=== PATIENT | male | born 1960 | race Caucasian/White ===

== ENCOUNTER 2018-08-07 21:09 | Observation (INO) ==
--- NOTE | 2018-08-07 22:09 | ED ---
HPI General Chief Complaint: Extremity Injury, Upper Stated Complaint: Right shoulder dislocation Time Seen by Provider: 08/07/18 21:37 Source: patient Mode of arrival: ambulatory Limitations: no limitations History of Present Illness HPI narrative: 57-year-old male presents to the emergency room for evaluation of right shoulder pain after mechanical fall just prior to arrival. Patient tripped on a parking curb and fell forward landing mostly on his belly. He also had his bilateral arms outstretched and reports significant pain in the proximal shoulder. Pain is worsened with range of motion. No radiation. States he cannot lift his arm more than a few inches from his body. He states it does not feel broken and he believes it might be dislocated. No history of dislocation. He has not taken anything for symptoms. Reports occasional paresthesias of the right upper extremity. He adamantly denies any other injuries or abdominal pain. MD complaint: injury to: Reports right and shoulder Onset (ago): hour(s) Other injuries: Reports none Handedness: right Place: outdoors Severity: severe Relieving factors: immobilization Exacerbating factors: movement of extremity Context: Reports fall Associated symptoms: Reports denies other symptoms Related Data Home Medications Medication Instructions Recorded Confirmed amlodipine 10 mg PO DAILY 08/07/18 08/07/18 Allergies Allergy/AdvReac Type Severity Reaction Status Date / Time No Known Allergies Allergy Verified 08/07/18 21:37 Review of Systems ROS: all other systems reviewed are negative PMFSH Social History Social History Substance History: No History of Abuse Smoking Status: Never smoker How Often Do You Have a Drink Containing Alcohol: 2 to 4 times a month Recent Travel in [facility] within the Last 8 Weeks: No Recent Out of Country Travel within the Last 8 Weeks: No Immunization History Tetanus Immunization: <5 Years Exam Narrative Exam Narrative: GENERAL: Well-nourished, morbidly obese male in no acute distress. Afebrile. Ambulatory. SKIN: Focused skin assessment warm/dry. No erythema or ecchymosis per HEAD: Normocephalic. EYES: No scleral icterus. No injection or drainage. NECK: Supple, trachea midline. No JVD or lymphadenopathy. CARDIOVASCULAR: Regular rate and rhythm without murmurs, gallops, or rubs. RESPIRATORY: Breath sounds equal bilaterally. No accessory muscle use. GASTROINTESTINAL: Abdomen soft, non-tender, nondistended. No rebound tenderness or guarding. MUSCULOSKELETAL: No cyanosis. No obvious deformity. No edema. 2+ radial pulse. Radial, ulnar, median nerves intact on the right. Tenderness to palpation of the right anterior humeral head. Limited range of motion of the right shoulder secondary to pain. Pain is reduced with passive range of motion. Muscle is spasming. Procedures Orthopedic Joint Reduction R shoulder Dislocation: Time Out Performed: Yes Side: right Joint Reduction Location: shoulder Analgesia: procedural sedation Shoulder Technique Used (if applicable): traction/counter-traction and external rotation Technique Used: traction/counter-traction Post-Reduction Neuro Exam: intact Post-Reduction Vascular Exam: intact Post Reduction X-Ray Obtained: Yes Post Reduction X-Ray Results: not reduced Splint Applied: Yes Patient Tolerated Procedure: well Procedural Sedation Indications: fracture/dislocation reduction ASA Class: ASA 2 Moderate Systemic Disease Time of Last PO Intake: 21:00 Preparation: press clippings cutter and paster applied, pulse oximeter, supplemental O2 applied and suction/airway equipment at bedside IV Etomidate Dose (mgs): 20 Patient Tolerated Procedure: well Complications: none Interventions: oxygen applied and airway repositioned Course Reevaluation(s) Reevaluation #1: Case has been discussed with Dr. Ball from orthopedics who recommended to admit the patient to medicine for an intraoperative under anesthesia reduction of the right shoulder Time: 03:10 Initial Documented Vital Signs Temperature 97.7 F 08/07/18 21:15 Pulse Rate 89 08/07/18 21:15 Respiratory Rate 20 08/07/18 21:15 Blood Pressure 155/73 H 08/07/18 21:15 Pulse Oximetry 95 08/07/18 21:15 Last Documented Vital Signs Temperature 97.7 F 08/07/18 21:15 Pulse Rate 87 08/08/18 05:12 Respiratory Rate 18 08/08/18 05:12 Blood Pressure 167/87 H 08/08/18 05:12 Pulse Oximetry 97 08/08/18 05:12 Medical Decision Making [facility] Narrative Medical decision making narrative: 57-year-old male presents to the emergency room for evaluation of right shoulder pain after trip and fall just prior to arrival. Patient fell mostly on his abdomen and right outstretched arm. He reports severe pain in the right proximal anterior humeral head. Pain is worse with any range of motion. Physical exam is somewhat limited due to body habitus but there is no obvious deformity. Right upper extremity is neurovascularly intact with 2+ radial pulse. Radial, ulnar, and median nerves intact. He was given hydrocodone for pain. X-ray of the shoulder shows anterior dislocation of the glenohumeral joint with displaced Hill-Sachs and bony Bankart lesions. At this time patient was transferred to the [facility] for reduction and care was signed out to nighttime physician, Dr. Velasco. Medical Screen Exam Complete: Yes Emergency Medical Condition: Yes Differential Diagnosis Differential Diagnosis: Muscle spasm, fracture, dislocation, contusion Lab Data Lab results reviewed: Yes I reviewed the patient's lab results. Result diagrams: 08/08/18 03:25 08/08/18 03:25 Lab Results 08/08/18 08/08/18 Range/Units 03:25 03:25 CBC w Diff Auto diff final WBC 11.8 H (4.0-11.0) th/mm3 RBC 4.05 L (4.50-5.90) mil/mm3 Hgb 13.6 (13.0-17.0) gm/dL Hct 40.2 (39.0-51.0) % MCV 99.2 (80.0-100.0) fL MCH 33.5 (27.0-34.0) pg MCHC 33.8 (32.0-36.0) % RDW 12.3 (11.6-17.2) % Plt Count 250 (150-450) th/mm3 MPV 8.2 (7.0-11.0) fL Neut % (Auto) 86.4 H (16.0-70.0) % Lymph % (Auto) 9.9 (9.0-44.0) % [place] % (Auto) 3.2 (0.0-8.0) % Eos % (Auto) 0.2 (0.0-4.0) % Baso % (Auto) 0.3 (0.0-2.0) % Neut # (Auto) 10.2 H (1.8-7.7) th/mm3 Lymph # (Auto) 1.2 (1.0-4.8) th/mm3 [place] # (Auto) 0.4 (0.0-0.9) th/mm3 Eos # (Auto) 0.0 (0.0-0.4) th/mm3 Baso # (Auto) 0.0 (0.0-0.2) th/mm3 WBC Differential . Differential Comment . Sodium 137 (136-145) meq/L Potassium 4.4 (3.5-5.1) meq/L Chloride 105 (98-107) meq/L Carbon Dioxide 23.0 (21.0-32.0) meq/L Anion Gap 9 (5-15) meq/L BUN 15 (7-18) mg/dL Creatinine 1.00 (0.60-1.30) mg/dL Estimated GFR 77 L (>89) mL/min Random Glucose 160 H (74-106) mg/dL Calcium 8.2 L (8.5-10.1) mg/dL Total Bilirubin 0.5 (0.2-1.0) mg/dL AST 25 (15-37) U/L ALT 43 (12-78) U/L Alkaline Phosphatase 67 (45-117) U/L Total Protein 7.5 (6.4-8.2) g/dL Albumin 3.7 (3.4-5.0) g/dL Imaging Data Attestation: I personally reviewed and interpreted this imaging study as follows : Radiologist's impression: Shoulder X-Ray 08/07/18 21:38 CONCLUSION: Anterior dislocation of the glenohumeral joint with displaced Hill-Sachs and bony Bankart lesions. Shoulder X-Ray 08/08/18 01:14 CONCLUSION: Persistent anterior dislocation with humeral head fracture. Discharge Plan Discharge Disposition Patient Disposition: Transfer To [facility] Discharge Condition Condition: Stable Discharge Details Discharge Comment: Case has been discussed with the admitting physician Dr. Logan Diagnosis: Dislocation of shoulder region, Fracture of humerus Physicians Team ED Provider: Esdras Velasco ED Midlevel Provider: Lina Blum Primary Care Provider: Christian Lay Attending Provider: Anais Logan Other Providers: Christian Ball Status ED Status: Admitted Observation Patient
--- NOTE | 2018-08-07 22:11 | XR ---
EXAM DATE: 08/07/2018 10:08 PM EST AGE/SEX: 57 years / Male INDICATIONS: Right anterior shoulder pain, post fall today. CLINICAL DATA: This is the patient's initial encounter. Patient reports that signs and symptoms have been present for 1 day and indicates a pain score of 10/10. MEDICAL/SURGICAL HISTORY: None. None. COMPARISON: No prior exams available for comparison. FINDINGS: Glenohumeral joint is dislocated anteriorly. There is a comminuted and inferiorly displaced Hill-Sach s lesion of the humeral head. At least one fracture fragment is likely off of the anterior glenoid. CONCLUSION: Anterior dislocation of the glenohumeral joint with displaced Hill-Sachs and bony Bankart lesions. Electronically signed by: Noah Simons MD 08/07/2018 10:10 PM EST
[2018-08-08] MEDS ORDERED: Etomidate Inj 40 MG/20 ML Vial IV.PUSH ONE (01:11)
[2018-08-08] MEDS ORDERED: Sod Chloride 0.9% Inj 1,000 ML IV.CONT SCH (01:15)
[2018-08-08] MEDS ORDERED: fentaNYL Citrate Inj 100 MCG/2 ML Ampul IV.PUSH ONE (02:56)
--- NOTE | 2018-08-08 03:21 | XR ---
EXAM DATE: 08/08/2018 2:41 AM EST AGE/SEX: 57 years / Male INDICATIONS: Post reduction attempt. CLINICAL DATA: This is the patient's initial encounter. Patient reports that signs and symptoms have been present for 2 days and indicates a pain score of 0/10. MEDICAL/SURGICAL HISTORY: None. None. COMPARISON: HPO, SHOULDER LIMITED RIGHT 2V, 08/07/2018. . FINDINGS: A single view of the right shoulder shows no interval change. Persistent anterior dislocation. There is a fracture through the humeral head. CONCLUSION: Persistent anterior dislocation with humeral head fracture. Electronically signed by: Tee Tolentino MD 08/08/2018 3:19 AM EST
[2018-08-08 03:36] LABS: Baso % (Auto) 0.3 % (0.0-2.0); Eos % (Auto) 0.2 % (0.0-4.0); Hematocrit 40.2 % (39.0-51.0); Hemoglobin 13.6 gm/dL (13.0-17.0); Lymph # (Auto) 1.2 th/mm3 (1.0-4.8); Lymph % (Auto) 9.9 % (9.0-44.0); Mean Corpuscular HGB Conc 33.8 % (32.0-36.0); Mean Corpuscular Hemoglobin 33.5 pg (27.0-34.0); Mean Corpuscular Volume 99.2 fL (80.0-100.0); Mean Platelet Volume 8.2 fL (7.0-11.0); Mono # (Auto) 0.4 th/mm3 (0.0-0.9); Mono % (Auto) 3.2 % (0.0-8.0); Neut # (Auto) 10.2 th/mm3 (1.8-7.7); Neut % (Auto) 86.4 % (16.0-70.0); Platelet Count 250 th/mm3 (150-450); Red Blood Count 4.05 mil/mm3 (4.50-5.90); Red Cell Distribution Width 12.3 % (11.6-17.2); White Blood Count 11.8 th/mm3 (4.0-11.0)
[2018-08-08 03:44] LABS: Chloride 105 meq/L (98-107); Potassium 4.4 meq/L (3.5-5.1); Sodium 137 meq/L (136-145)
[2018-08-08 03:47] LABS: Albumin 3.7 g/dL (3.4-5.0); Anion Gap 9 meq/L (5-15); Calcium 8.2 mg/dL (8.5-10.1); Glucose,Random 160 mg/dL (74-106)
[2018-08-08 03:48] LABS: Blood Urea Nitrogen 15 mg/dL (7-18)
[2018-08-08 03:50] LABS: Alanine Aminotransferase 43 U/L (12-78); Aspartate Aminotransferase 25 U/L (15-37)
[2018-08-08 03:51] LABS: Glomerular Filtration Rate 77 mL/min (>89)
[2018-08-08 03:52] LABS: Total Protein 7.5 g/dL (6.4-8.2)
[2018-08-08 03:53] LABS: Alkaline Phosphatase 67 U/L (45-117)
[2018-08-08] MEDS ORDERED: Acetaminophen 325 MG Tablet PO PRN (04:43)
[2018-08-08] MEDS ORDERED: Naloxone Inj 0.4 MG/ML Vial IV.PUSH PRN (04:43)
[2018-08-08] MEDS ORDERED: Bisacodyl 10 MG Supp RECTAL PRN (04:43)
[2018-08-08] MEDS ORDERED: Morphine Inj 4 MG/ML Vial IV.PUSH PRN (04:43)
[2018-08-08] MEDS ORDERED: Metoprolol Tartrate 25 MG Tablet PO ONE (08:06)
[2018-08-08] MEDS ORDERED: Chlorhexidine Gluconate 2% 1 Pack (2 Cloths) TOPICAL ONE (08:06)
[2018-08-08] MEDS ORDERED: Senna/Docusate Sodium 8.6/50 MG Tablet PO SCH (09:00)
[2018-08-08] MEDS ORDERED: amLODIPine 10 MG Tablet PO SCH (09:00)
[2018-08-08] MEDS ORDERED: Sodium Chlor 0.9% Inj 500 ML IV.SIG SCH (09:00)
[2018-08-08] MEDS ORDERED: Morphine Sulfate Inj 2 MG/ML Vial IV.PUSH SCH (10:10)
[2018-08-08] MEDS ORDERED: Succinylcholine Inj 100 MG/5 ML Syringe IV.PUSH ONE (10:48)
--- NOTE | 2018-08-08 10:58 | P.CONOP ---
[facility] Orthopedics Consult Note - [facility] Consult date: 08/08/18 Chief complaint: Shoulder Dislocation, Humeral Head Fracture Narrative: Jamel is a 57-year-old male. He was walking and tripped over a parking curb. He fell forward landed on his right arm and abdomen. He has significant right shoulder pain. He also has some elbow and wrist pain. He presented to the emergency room where x-rays revealed a right shoulder dislocation with fracture of the greater tuberosity. He underwent closed reduction attempts in the emergency department which were unsuccessful. He has been transferred to [facility] in [facility] for definitive treatment. He is currently awake and alert. His only complaint is his right arm. He denies dizziness, syncope, or loss of consciousness. Pain is severe and intense with any shoulder motion. Pain is improved with rest. Review of Systems Patient denies fevers, chills, weight loss, headache, visual changes, hearing loss, chest pain, palpitations, shortness of breath, nausea, vomiting, no urinary changes, diarrhea, bowel changes, neck pain, back pain, skin rashes, weakness of extremities, easy bleeding, enlarged lymph nodes, numbness of extremities, anxiety, or depression. He complains of right shoulder pain. He also has mild right wrist and elbow pain. Patient's social history, past medical history, and family history were reviewed on chart and with patient. [facility] - History History Provided By: Patient - Medical History Medical History: Medical History (Last Reviewed 08/08/18 @ 10:56 by Usman Tyson MD) Hypertension - Surgical History Surgical History: Surgical History (Last Reviewed 08/08/18 @ 10:56 by Usman Tyson MD) H/O cataract extraction H/O vasectomy History of fusion of lumbar spine History of left hip replacement - Family History Family History: Family History (Last Updated 08/08/18 @ 10:56 by Usman Tyson MD) Other Family history non-contributory - Social History I have reviewed the patient's Social History: Yes - Tobacco History Smoking Status: Never smoker - Alcohol History How Often Do You Have a Drink Containing Alcohol: 2 to 4 times a month - Substance Use History Substance History: No History of Abuse - Travel History Recent Travel in the [facility] Within the Last 8 Weeks: No Recent Travel Out of the Country Within the Last 8 Weeks: No - Immunization History Tetanus Immunization: <5 Years Medications and Allergies Active Medications: Active Medications Acetaminophen (Tylenol) 650 mg PO Q4H PRN PRN Reason: headache/fever/pain1-4 Hydrocodone Bitart/Acetaminophen (Kidder 5/325) 1 tab PO Q4H PRN PRN Reason: pain scale 5 to 10 Al Hydroxide/Mg Hydroxide (Milk Of Magnesia Liq) 30 ml PO Q12H PRN PRN Reason: Mild Constipation Amlodipine Besylate (Norvasc) 10 mg PO DAILY [facility] Last Admin: 08/08/18 09:11 Dose: Not Given Bisacodyl (Dulcolax Supp) 10 mg RECTAL DAILY PRN PRN Reason: SEVERE CONSITIPATION Lactated Ringer's (Lr 1000 Ml Inj) 1,000 mls @ 30 mls/hr IV.SIG .Q24H [facility] Stop: 08/09/18 08:14 Last Admin: 08/08/18 08:35 Dose: 30 mls/hr Sodium Chloride (Ns Inj) 500 mls @ 30 mls/hr IV.SIG .Q10H [facility] Last Admin: 08/08/18 09:12 Dose: Not Given Lactulose (Lactulose Liq) 30 ml PO DAILY PRN PRN Reason: SEVERE CONSITIPATION Morphine Sulfate (Morphine Inj) 2 mg IV.PUSH Q3H PRN PRN Reason: BREAKTHROUGH PAIN Morphine Sulfate (Morphine Inj) 2 mg IV.PUSH ONCE AILYN Naloxone HCl (Narcan Inj) 0.4 mg IV.PUSH UNSCH PRN PRN Reason: SEE LABEL COMMENTS Ondansetron HCl (Zofran Inj) 4 mg IV.PUSH Q6H PRN PRN Reason: NAUSEA OR VOMITING Senna/Docusate Sodium (Radha-Colace) 1 tab PO BID [facility] Last Admin: 08/08/18 09:12 Dose: Not Given Sennosides (Senokot) 17.2 mg PO Q12H PRN PRN Reason: Moderate Constipation Sodium Chloride (Ns Flush) 2 ml IV.FLUSH PRN PRN PRN Reason: FLUSH AFTER USING IV ACCESS Sodium Chloride (Ns Flush) 2 ml IV.FLUSH BID [facility] Last Admin: 08/08/18 09:12 Dose: Not Given Sodium Chloride (Ns Flush) 2 ml IV.FLUSH PRN PRN PRN Reason: FLUSH AFTER USING IV ACCESS Allergies Allergy/AdvReac Type Severity Reaction Status Date / Time No Known Allergies Allergy Verified 08/08/18 09:53 Home Medications Medication Instructions Recorded Confirmed Type amlodipine 10 mg PO DAILY 08/07/18 08/07/18 History Exam Vital signs: Vital Signs 08/07/18 21:15 08/07/18 23:04 08/08/18 00:43 Temperature 97.7 F Pulse Rate 89 86 84 Respiratory Rate 20 18 18 Blood Pressure 155/73 H 190/97 H 160/78 H Pulse Oximetry 95 97 97 08/08/18 02:20 08/08/18 05:12 08/08/18 06:00 Temperature Pulse Rate 88 87 82 Respiratory Rate 18 18 Blood Pressure 167/87 H 168/88 H Pulse Oximetry 98 97 97 08/08/18 06:40 08/08/18 08:00 Temperature 98.1 F 98.1 F Pulse Rate 92 H 90 Respiratory Rate 19 20 Blood Pressure 180/81 H 163/83 H Pulse Oximetry 97 95 Intake & Output 08/07/18 08/08/18 08/08/18 18:59 06:59 18:59 Intake Total 500 / 500 Balance 500 / 500 Weight 165.9 kg Intake: IV 500 / 500 NS Inj 1,000 ML @ 125 mls/hr IV 500 / 500 .CONT .Q8H [facility] Rx#:[id number] Narrative: Jamel is a 57-year-old male. He is moderately overweight. General: Awake and alert. No acute distress. Appears well-developed well- nourished Head: Normocephalic, atraumatic pupils are equal Neck: Soft, nontender, trachea midline Abdomen: Soft, nondistended Examination of right arm reveals pain with any shoulder motion. There is some deformity of the shoulder. He has intact sensation in all fingers. Radial pulses palpable. He has minimal tenderness around his wrist or elbow. Skin is intact. Radial pulse is palpable. Normal capillary refill in fingers. Sensation is intact in radial, ulnar, and median nerve distributions. Instructor Tap Dancing strength is +5. No lymphadenopathy noted. Examination of left arm reveals no pain or deformity with shoulder, elbow, or wrist motion. Skin is intact. Radial pulse is palpable. Normal capillary refill in fingers. Sensation is intact in radial, ulnar, and median nerve distributions. Instructor Tap Dancing strength is +5. No lymphadenopathy noted. Examination of left lower extremity reveals no pain or deformity with hip, knee , or ankle motion. Skin is intact. Sensation is intact in left foot. Dorsalis pedis pulse is palpable. Normal capillary refill and feet. Thigh and calf compartments are soft. No lymphadenopathy noted. +5 strength of ankle dorsiflexion and plantarflexion. Examination of right lower extremity reveals no pain or deformity with hip, knee , or ankle motion. Skin is intact. Sensation is intact in right foot. Dorsalis pedis pulse is palpable. Normal capillary refill and feet. Thigh and calf compartments are soft. No lymphadenopathy noted. +5 strength of ankle dorsiflexion and plantarflexion. Results - Labs Result Diagrams: 08/08/18 03:25 08/08/18 03:25 Labs: Laboratory Results - last 24 hr 08/08/18 08/08/18 03:25 03:25 CBC w Diff Auto diff final WBC 11.8 H RBC 4.05 L Hgb 13.6 Hct 40.2 MCV 99.2 MCH 33.5 MCHC 33.8 RDW 12.3 Plt Count 250 MPV 8.2 Neut % (Auto) 86.4 H Lymph % (Auto) 9.9 [place]ains % (Auto) 3.2 Eos % (Auto) 0.2 Baso % (Auto) 0.3 Neut # (Auto) 10.2 H Lymph # (Auto) 1.2 Rains # (Auto) 0.4 Eos # (Auto) 0.0 Baso # (Auto) 0.0 WBC Differential . Differential Comment . Sodium 137 Potassium 4.4 Chloride 105 Carbon Dioxide 23.0 Anion Gap 9 BUN 15 Creatinine 1.00 Estimated GFR 77 L Random Glucose 160 H Calcium 8.2 L Total Bilirubin 0.5 AST 25 ALT 43 Alkaline Phosphatase 67 Total Protein 7.5 Albumin 3.7 - Diagnostic results Imaging: Impressions Shoulder X-Ray 08/07/18 21:38 CONCLUSION: Anterior dislocation of the glenohumeral joint with displaced Hill-Sachs and bony Bankart lesions. Shoulder X-Ray 08/08/18 01:14 CONCLUSION: Persistent anterior dislocation with humeral head fracture. Shoulder x-ray: report reviewed, image reviewed Assessment and Plan - Assessment and Plan Jamel is a 57-year-old male who had a fall resulting in right shoulder dislocation with a small greater tuberosity fracture. He had unsuccessful closed reduction attempts at [place] emergency department. Treatment options were discussed with patient. At this point I would recommend closed reduction under anesthesia with manipulation. I explained to him that the greater tuberosity fragments are relatively small. These fractures will likely reduce appropriately once the shoulder was reduced. If these fractures do not reduced well he may need additional surgery for open reduction to fixation of these fragments. The risk and benefits of surgery were discussed. Informed consent was obtained. Operative site was marked. I will plan on surgery today. The risk and benefits of surgery were discussed in depth with patient. The risk of surgery include bleeding, infection, injuries to arteries, nerves, or blood vessels, infection, wound complications, nonunion, malunion, shoulder stiffness, loss of shoulder motion, and need for further surgery. I also discussed medical complications including blood clots, pneumonia, stroke, heart attack, and . Informed consent was obtained and all questions were answered. N.p.o.--plan on surgery this morning Calcium and vitamin D supplementation Physical therapy consult Follow-up with Dr. Tyson in 2 weeks PREM Ellis A mid-level provider in my office (nurse practitioner or physician rehabilitation assistant) may see this patient on follow-up visits and continue to implement the objectives of this plan including: Starting or adjusting medications, injections , cast application, orthotics, brace application, physical therapy, radiological studies (including x-ray, MRI, CT, ultrasound, bone scan), vascular studies, neurologic studies, specialist consultation, and proceeding with surgical management, as appropriate.
[2018-08-08] MEDS ORDERED: Post-op Orders (for Pharmacy) OTHER STA (11:16)
[2018-08-08] MEDS ORDERED: fentaNYL Citrate Inj 100 MCG/2 ML Ampul ONE (11:29)
--- NOTE | 2018-08-08 11:32 | P.OP ---
- Preoperative Diagnosis (1) Dislocation of shoulder region (2) Fracture of humerus Date of procedure: 08/08/18 Procedure: Closed reduction of left greater tuberosity fracture and left shoulder dislocation with manipulation under anesthesia Anesthesia: FAYE Surgeon: Usman Tyson MD Station Cleaning Porter: Marco Antonio Mckinley PA-C The surgical procedure was assisted by my physician clothing sales assistant. My P.A. presence was necessary throughout this case for the manipulation and positioning of the surgical extremity. My P.A. was assisting me throughout the duration of this procedure. The skill set of a physician clothing sales assistant was medically necessary to complete this procedure. During the surgical case the food equipment service technician was working at the back table and the physician clothing sales assistant was directly assisting me. Operation and Findings: Jamel is a 57-year-old male who had a fall yesterday resulting in right shoulder dislocation with fracture of his greater tuberosity. Reduction attempts in the emergency department were unsuccessful. Operative site was marked. Informed consent was obtained after discussion of risks and benefits of surgery. He is brought to the operating room. Is given IV sedation and general anesthesia. Timeout procedure was performed. Procedure began with manipulation of the right arm under fluoroscopy. The shoulder was gently reduced. Once the shoulder was reduced to the shoulder was rotated to improve alignment of the greater tuberosity fracture. Multiplanar fluoroscopy confirmed well aligned shoulder dislocation with well aligned fracture. Patient was placed into a sling and swath. He was awakened and transferred to recovery room in stable condition.
[2018-08-08] MEDS ORDERED: Calcium/Vitamin D 250/125 MG Tablet PO SCH (13:00)
--- NOTE | 2018-08-08 13:59 | XR ---
EXAM DATE: 08/08/2018 1:35 PM EST AGE/SEX: 57 years / Male INDICATIONS: Closed reduction of right shoulder. CLINICAL DATA: This is the patient's subsequent encounter. Patient reports that signs and symptoms h ave been present for 2 days and indicates a pain score of Nonresponsive. MEDICAL/SURGICAL HISTORY: Non-responsive. Non-responsive. COMPARISON: HPO, SHOULDER LIMITED RIGHT 2V, 08/07/2018. . FINDINGS: 2 spot images obtained in the operating room during a closed reduction and documents a fracture throu gh the greater tuberosity of the humerus. The humeral head has a normal relationship with the glenoid fossa. There is improved anatomic alignment compared to the prior study. CONCLUSION: Improved alignment of the greater tuberosity fracture of the proximal humerus. There is no glenohumer al joint dislocation. Electronically signed by: Noah Sung MD 08/08/2018 1:58 PM EST
--- NOTE | 2018-08-08 15:02 | P.HP ---
History of Present Illness Primary Care Physician: Christian Lay DO Chief Complaint: Right upper extremity pain History of Present Illness: 57-year-old male with a past medical history of hypertension, was transferred to [place] ED for evaluation of right upper extremity pain following a mechanical fall last night around 10 PM. Patient states as he was walking out of the restaurant, he tripped over a parking curb and fell forward landing on his right arm as well as abdomen. He had significant right shoulder, elbow and wrist pain. Denies any trauma to the head or loss of consciousness. An x-ray in the ED revealed right shoulder dislocation with fracture of the greater tuberosity, for which he underwent closed reduction attempts in the ED however they were unsuccessful. Orthopedic surgery was consulted and patient transferred to [facility] ED, where the procedure was performed today. He has no other issues and complaint. Review of Systems All other systems reviewed negative except as stated [facility] - History History Provided By: Patient - Medical History Medical History: Medical History (Last Reviewed 08/08/18 @ 10:56 by Usman Tyson MD) Hypertension - Surgical History Surgical History: Surgical History (Last Reviewed 08/08/18 @ 10:56 by Usman Tyson MD) H/O cataract extraction H/O vasectomy History of fusion of lumbar spine History of left hip replacement - Family History Family History: Family History (Last Updated 08/08/18 @ 10:56 by Usman Tyson MD) Other Family history non-contributory - Tobacco History Second Hand Smoke Exposure: No Smoking Status: Never smoker - Alcohol History How Often Do You Have a Drink Containing Alcohol: 2 to 4 times a month - Substance Use History Substance History: No History of Abuse - Travel History Recent Travel in the [place] Within the Last 8 Weeks: No Recent Travel Out of the Country Within the Last 8 Weeks: No - Immunization History Tetanus Immunization: <5 Years Medications and Allergies Active Medications: Active Medications Acetaminophen (Tylenol) 650 mg PO Q4H PRN PRN Reason: headache/fever/pain1-2 Hydrocodone Bitart/Acetaminophen ([place] 7.5/325) 1 tab PO Q3H PRN PRN Reason: Pain Scale 3-10 Al Hydroxide/Mg Hydroxide (Milk Of Magnesia Liq) 30 ml PO Q12H PRN PRN Reason: Mild Constipation Amlodipine Besylate (Norvasc) 10 mg PO DAILY AILYN Last Admin: 08/08/18 09:11 Dose: Not Given Bisacodyl (Dulcolax Supp) 10 mg RECTAL DAILY PRN PRN Reason: SEVERE CONSITIPATION Calcium/Vitamin D (Oscal With D 250/125 Mg) 1 tab PO TID [facility] Last Admin: 08/08/18 14:32 Dose: 1 tab Diphenhydramine HCl (Benadryl) 25 mg PO Q6H PRN PRN Reason: ITCHING Lactated Ringer's (Lr 1000 Ml Inj) 1,000 mls @ 30 mls/hr IV.SIG .Q24H [facility] Stop: 08/09/18 08:14 Last Infusion: 08/08/18 11:19 Dose: 30 mls/hr Sodium Chloride (Ns Inj) 500 mls @ 30 mls/hr IV.SIG .Q10H [facility] Last Admin: 08/08/18 09:12 Dose: Not Given Lactated Ringer's (Lr 1000 Ml Inj) 1,000 mls @ 50 mls/hr IV.CONT .Q20H [facility] Lactulose (Lactulose Liq) 30 ml PO DAILY PRN PRN Reason: SEVERE CONSITIPATION Miscellaneous Information (Misc Nursing Information) 1 each OTHER UNSCH PRN PRN Reason: SEE LABEL COMMENTS Stop: 08/09/18 11:24 Morphine Sulfate (Morphine Inj) 2 mg IV.PUSH Q3H PRN PRN Reason: BREAKTHROUGH PAIN Morphine Sulfate (Morphine Inj) 2 mg IV.PUSH ONCE [facility] Last Admin: 08/08/18 10:20 Dose: 2 mg Naloxone HCl (Narcan Inj) 0.4 mg IV.PUSH UNSCH PRN PRN Reason: SEE LABEL COMMENTS Ondansetron HCl (Zofran Inj) 4 mg IV.PUSH Q6H PRN PRN Reason: NAUSEA OR VOMITING Ondansetron HCl (Zofran Odt) 4 mg PO Q6H PRN PRN Reason: NAUSEA OR VOMITING Senna/Docusate Sodium (Radha-Colace) 1 tab PO BID [facility] Last Admin: 08/08/18 09:12 Dose: Not Given Sennosides (Senokot) 17.2 mg PO Q12H PRN PRN Reason: Moderate Constipation Sodium Chloride (Ns Flush) 2 ml IV.FLUSH PRN PRN PRN Reason: FLUSH AFTER USING IV ACCESS Sodium Chloride (Ns Flush) 2 ml IV.FLUSH BID [facility] Last Admin: 08/08/18 09:12 Dose: Not Given Sodium Chloride (Ns Flush) 2 ml IV.FLUSH PRN PRN PRN Reason: FLUSH AFTER USING IV ACCESS Vitamin D (Vitamin D3) 5,000 unit PO DAILY AILYN Allergies Allergy/AdvReac Type Severity Reaction Status Date / Time No Known Allergies Allergy Verified 08/08/18 09:53 Home Medications Medication Instructions Recorded Confirmed Type amlodipine 10 mg PO DAILY 08/07/18 08/07/18 History Exam Vital signs: Vital Signs 08/07/18 21:15 08/07/18 23:04 08/08/18 00:43 Temperature 97.7 F Pulse Rate 89 86 84 Respiratory Rate 20 18 18 Blood Pressure 155/73 H 190/97 H 160/78 H Pulse Oximetry 95 97 97 08/08/18 02:20 08/08/18 05:12 08/08/18 06:00 Temperature Pulse Rate 88 87 82 Respiratory Rate 18 18 Blood Pressure 167/87 H 168/88 H Pulse Oximetry 98 97 97 08/08/18 06:40 08/08/18 08:00 08/08/18 11:30 Temperature 98.1 F 98.1 F 98.2 F Pulse Rate 92 H 90 96 H Respiratory Rate 19 20 18 Blood Pressure 180/81 H 163/83 H 133/73 Pulse Oximetry 97 95 94 L 08/08/18 11:45 08/08/18 11:59 08/08/18 12:05 Temperature 98.2 F 97.5 F L Pulse Rate 95 H 99 H Respiratory Rate 18 14 Blood Pressure 140/76 132/74 Pulse Oximetry 94 L 95 95 08/08/18 14:35 Temperature Pulse Rate Respiratory Rate Blood Pressure Pulse Oximetry 93 L Intake & Output 08/07/18 08/08/18 08/08/18 18:59 06:59 18:59 Intake Total 500 / 500 100 / 100 Balance 500 / 500 100 / 100 Weight 165.9 kg Intake: IV 500 / 500 100 / 100 NS Inj 1,000 ML @ 125 mls/hr IV 500 / 500 .CONT .Q8H AILYN Rx#:[id number] LR 1000 mL Inj 1,000 ML @ 30 100 / 100 mls/hr IV.SIG .Q24H AILYN Rx#: [id number] Other: Date of Last Bowel Movement 08/07/18 Narrative: GENERAL: NAD SKIN: Warm and dry. HEAD: Atraumatic. Normocephalic. EYES: Pupils equal and round. No scleral icterus. No injection or drainage. ENT: No nasal bleeding or discharge. Mucous membranes pink and moist. NECK: Trachea midline. No JVD. CARDIOVASCULAR: Regular rate and rhythm. RESPIRATORY: No accessory muscle use. Clear to auscultation. Breath sounds equal bilaterally. GASTROINTESTINAL: Abdomen soft, non-tender, nondistended. Hepatic and splenic margins not palpable. MUSCULOSKELETAL: Extremities without clubbing, cyanosis, or edema. No obvious deformities. s/p right shoulder repair. arm in sling NEUROLOGICAL: Awake and alert. No obvious cranial nerve deficits. Motor grossly within normal limits. Five out of 5 muscle strength in the arms and legs. Normal speech. PSYCHIATRIC: Appropriate mood and affect; insight and judgment normal. Results - Labs CBC & Chem 7: 08/08/18 03:25 08/08/18 03:25 Labs: Laboratory Results - last 24 hr 08/08/18 08/08/18 03:25 03:25 CBC w Diff Auto diff final WBC 11.8 H RBC 4.05 L Hgb 13.6 Hct 40.2 MCV 99.2 MCH 33.5 MCHC 33.8 RDW 12.3 Plt Count 250 MPV 8.2 Neut % (Auto) 86.4 H Lymph % (Auto) 9.9 [place] % (Auto) 3.2 Eos % (Auto) 0.2 Baso % (Auto) 0.3 Neut # (Auto) 10.2 H Lymph # (Auto) 1.2 [place] # (Auto) 0.4 Eos # (Auto) 0.0 Baso # (Auto) 0.0 WBC Differential . Differential Comment . Sodium 137 Potassium 4.4 Chloride 105 Carbon Dioxide 23.0 Anion Gap 9 BUN 15 Creatinine 1.00 Estimated GFR 77 L Random Glucose 160 H Calcium 8.2 L Total Bilirubin 0.5 AST 25 ALT 43 Alkaline Phosphatase 67 Total Protein 7.5 Albumin 3.7 - Imaging Impressions Shoulder X-Ray 08/07/18 21:38 CONCLUSION: Anterior dislocation of the glenohumeral joint with displaced Hill-Sachs and bony Bankart lesions. Shoulder X-Ray 08/08/18 00:00 CONCLUSION: Improved alignment of the greater tuberosity fracture of the proximal humerus. There is no glenohumeral joint dislocation. Shoulder X-Ray 08/08/18 01:14 CONCLUSION: Persistent anterior dislocation with humeral head fracture. Caprini VTE Risk Assessment Caprini VTE Risk Assessment: No/Low Risk (score <= 1) Caprini Risk Assessment Model: Point Value = 1 Point Value = 2 Point Value = 3 Point Value = 5 Age 41-60 Minor surgery BMI > 25 kg/m2 Swollen legs Varicose veins or History of unexplained or recurrent spontaneous Oral contraceptives or hormone replacement Sepsis (< 1 month) Serious lung disease, including pneumonia (< 1 month) Abnormal pulmonary function Acute myocardial infarction Congestive heart failure (< 1 month) History of inflammatory bowel disease Medical patient at bed rest Age 61-74 Arthroscopic surgery Major open surgery (> 45 min) Laparoscopic surgery (> 45 min) Malignancy Confined to bed (> 72 hours) Immobilizing plaster cast Central venous access Age >= 75 History of VTE Family history of VTE Factor V Leiden Prothrombin [id number] Lupus anticoagulant Anticardiolipin antibodies Elevated serum homocysteine Heparin-induced thrombocytopenia Other congenital or acquired thrombophilia Stroke (< 1 month) Elective arthroplasty Hip, pelvis, or leg fracture Acute spinal cord injury (< 1 month) Prophylaxis Regimen: Total Risk Factor Score Risk Level Prophylaxis Regimen 0-1 Low Early ambulation 2 Moderate Order ONE of the following: *Sequential Compression Device (SCD) *Heparin 5000 units SQ BID 3-4 Higher Order ONE of the following medications: *Heparin 5000 units SQ TID *Enoxaparin/Lovenox 40 mg SQ daily (WT < 150 kg, CrCl > 30 mL/min) *Enoxaparin/Lovenox 30 mg SQ daily (WT < 150 kg, CrCl > 10-29 mL/min) *Enoxaparin/Lovenox 30 mg SQ BID (WT < 150 kg, CrCl > 30 mL/min) AND/OR *Sequential Compression Device (SCD) 5 or more Highest Order ONE of the following medications: *Heparin 5000 units SQ TID (Preferred with Epidurals) *Enoxaparin/Lovenox 40 mg SQ daily (WT < 150 kg, CrCl > 30 mL/min) *Enoxaparin/Lovenox 30 mg SQ daily (WT < 150 kg, CrCl > 10-29 mL/min) *Enoxaparin/Lovenox 30 mg SQ BID (WT < 150 kg, CrCl > 30 mL/min) AND *Sequential Compression Device (SCD) Assessment and Plan - Plan 57-year-old man with Right shoulder fracture Shoulder x-ray noted and reviewed by me with finding of Anterior dislocation of the glenohumeral joint with displaced Hill-Sachs and bony Bankart lesions. Orthopedic surgery was consulted s/p Closed reduction of left greater tuberosity fracture and left shoulder dislocation with manipulation under anesthesia Pain management accordingly Patient has been cleared for discharge by orthopedic surgery Hypertension resume home medication [place] Prescription Drug Monitoring Database has been queried and verified prior to prescribing the controlled substance. Acute pain exception. This patient has normal, predicted, physiological, and time limited response to an adverse mechanical stimulus associated with surgery, trauma, or acute illness as described in my notes. There is a lack of alternative treatment options other than to include the prescribed narcotic treatment for this condition.
--- NOTE | 2018-08-08 17:10 | ECG ---
Date Performed: 08/07/2018 Time Performed: 23:08:27 PTAGE: 57 years EKG: Sinus rhythm NORMAL ECG NO PREVIOUS TRACING DOCTOR: Mariya Londono Interpretating Date/Time 08/08/2018 17:09:24
== END 2018-08-08 15:42 | disposition home or self-care (01) ==
LOC: PHED 21:09 → PHEDA 21:09 → N06 08-08 06:30
PROVIDERS: ADMIT Hospitalist; ATTEND Hospitalist
PROC: CRPPWRI (2018-08-08 10:15)